=== PATIENT | female | born 1990 | race Hispanic/Latino ===

== ENCOUNTER 2017-10-14 08:55 | Inpatient (IN) | payer OTHER ==
--- OUTSIDE RECORDS SUMMARY | 2017-10-14 08:57 | XMS REPORT ---
:1990 Author Organization [employer] Care Team Providers Name Role Phone Delia Dangelo Provider Role Unavailable Allergies No Known Allergies Problems Problem Type Condition Code Onset Dates Condition Status Problem Normal first in third Z34.03 Active trimester Problem Other abnormal findings on O28.8 Active screening of mother Problem Hemochromatosis carrier Z14.8 Active Assessment Hemochromatosis carrier Z14.8 Active Assessment Normal first in third Z34.03 Active trimester Medications No Known Medications Results No Known Results Summary Purpose eClinicalWorks Submission
--- OUTSIDE RECORDS SUMMARY | 2017-10-14 08:57 | XMS REPORT ---
:1990 Author Organization [employer] Care Team Providers Name Role Phone Delia Dangelo Provider Role Unavailable Allergies No Known Allergies Problems Problem Type Condition Code Onset Dates Condition Status Problem care, first in Z34.02 Active second trimester Assessment care, first in Z34.02 Active second trimester Problem Other abnormal findings on O28.8 Active screening of mother Assessment Other abnormal findings on O28.8 Active screening of mother Medications No Known Medications Results No Known Results Summary Purpose eClinicalWorks Submission
--- OUTSIDE RECORDS SUMMARY | 2017-10-14 08:57 | XMS REPORT ---
:1990 Author Organization [employer] Care Team Providers Name Role Phone Delia Dangelo Provider Role Unavailable Allergies No Known Allergies Problems Problem Type Condition Code Onset Dates Condition Status Problem Normal first in third Z34.03 Active trimester Problem Other abnormal findings on O28.8 Active screening of mother Problem Hemochromatosis carrier Z14.8 Active Assessment Other abnormal findings on O28.8 Active screening of mother Assessment Hemochromatosis carrier Z14.8 Active Assessment Normal first in third Z34.03 Active trimester Medications No Known Medications Results No Known Results Immunizations Vaccine Administration Date TDAP > 7 Years-Adacel Oct 01, 2017 Summary Purpose eClinicalWorks Submission
--- OUTSIDE RECORDS SUMMARY | 2017-10-14 08:57 | XMS REPORT ---
[...] on O28.8 Active screening of mother Assessment Normal first in third Z34.03 Active trimester Medications No Known Medications Results No Known Results Summary Purpose eClinicalWorks Submission
[2017-10-14] MEDS ORDERED: Ringers Lactate 1,000 ML IV PRN (10:42)
[2017-10-14] MEDS ORDERED: Ringers Lactate 1,000 ML IV SCH (11:00)
[2017-10-14] MEDS ORDERED: OXYTOCIN/LR 20 UNIT/1,000 ML BAG IV SCH ×2 (11:00→14:42)
[2017-10-14 11:11] LABS: RPR Titer ND
[2017-10-14 11:21] VITALS: BMI 37.8
[2017-10-14 11:28] LABS: Urine Appearance CLEAR; Urine Bilirubin NEGATIVE (NEG); Urine Blood TRACE (NEG); Urine Color YELLOW; Urine Glucose NEGATIVE (NEG); Urine Protein NEGATIVE (NEG); Urine Specific Gravity 1.015 (1.005-1.030); Urine Urobilinogen 0.2 mg/dL (0.2-1.0); Urine pH 6.5 (5.0-7.0)
[2017-10-14 11:29] LABS: Absolute Monocytes 0.4 K/uL (0.1-1.3); Absolute Neutrophil 9.3 K/uL (1.8-8.0); Basophils % 0.4 % (0-1.3); Eosinophils % 0.5 % (0-4.4); Hematocrit 40.5 % (36.0-45.0); Lymphocytes % 17.1 % (15.3-44.8); MCV 88.8 fL (80-100); MPV 11.9 fL (7.6-11.3); Monocytes % 3.5 % (3.3-12.3); RBC Red Blood Cell Count 4.56 M/uL (3.86-4.86)
[2017-10-14 11:31] LABS: Urine Microscopic Reflex ORDER UMIC
[2017-10-14 11:38] LABS: BUN Blood Urea Nitrogen 11 mg/dL (7-18); Bicarbonate 22 mmol/L (21-32); Glucose Level 78 mg/dL (74-106); Potassium 4.7 mmol/L (3.5-5.1); Sodium Level 141 mmol/L (136-145)
[2017-10-14 11:43] LABS: Urine Bacteria <20 /HPF (<20); Urine RBC <5 /HPF (NONE SEEN)
[2017-10-14 11:44] LABS: Urine Culture Reflex Order NOT NEEDED
--- NOTE | 2017-10-14 12:12 | P.HP ---
Certification for Inpatient Patient admitted to: Inpatient With expected LOS: >2 Midnights Patient will require the following post-hospital care: None Practitioner: I am a practitioner with admitting privileges, knowledge of patient current condition, hospital course, and medical plan of care. Services: Services provided to patient in accordance with Admission requirements found in Title 42 Section 412.3 of the Code of Federal Regulations Patient History Date of Service: 10/14/17 Reason for admission: Spontaneous labor History of Present Illness: 26 y.o. G1 at 38w3d admitted for spontaneous onset of labor. She has been baldev since yesterday and pain became unbearable, so she presented to L&D and was noted to be 4 cm dilated, bulging bag. She denies LOF or VF. Fetus is active. complicated byh/o THC use, indeterminate NIPT x2 and referral to [facility] (subsequent negative result), diagnosis of hemochromatosis carrier, and obesity. AGATHA: 10/25/2017. GBS negative Allergies No Known Allergies Allergy (Verified 08/17/17 03:47) Home Medications: Vits96/Iron Fum/Folic [ Tablet] 1 each PO DAILY 10/14/17 - Past Medical/Surgical History Diabetic: No -: Hemochromatosis carrier -: H/o THC use - Social History Smoking Status: Former smoker Alcohol use: No CD- Drugs: No Caffeine use: No Place of Residence: Home Review of Systems 10-point ROS is otherwise unremarkable Physical Examination - Vital Signs Temperature: 97.1 F Blood Pressure: 125/66 Pulse: 77 Respirations: 20 - Physical Exam General: Alert, In no apparent distress, Oriented x3 HEENT: Atraumatic, Normocephalic Respiratory: Other (Normal effort) Cardiovascular: Normal pulses Musculoskeletal: No swelling, No tenderness Integumentary: No rashes, No breakdown Neurological: Normal speech, Normal strength at 5/5 x4 extr - Studies Laboratory Data (last 24 hrs) 10/14/17 10:28: Sodium 141, Potassium 4.7, BUN 11, Creatinine 0.70, Glucose 78 10/14/17 10:28: WBC 11.8 H, Hgb 13.7, Hct 40.5, Plt Count 222 Female Exam - Female Pelvic Cervix: Dilation (5), Effacement (80), station (-1) Uterus: Non-tender, Soft, Gravid - Obstetrics heart rate tracing: Category 1 Contractions: Frequency (q 3-4 min) Amniotic membrane: Intact (Bulging) Assessment and Plan - Problems (Diagnosis) (1) Spontaneous onset of labor after 37 but before 39 completed weeks gestation with delivery by planned section Current Visit: Yes Status: Acute Plan: Admit for management of labor. AROM done with clear fluid noted. Epidural prn patient request. Continuous monitoring. (2) Hemochromatosis carrier Current Visit: Yes Status: Acute Plan: S/p evaluation by MFM. FOB is not a carrier. (3) Class 2 obesity with body mass index (BMI) of 37.0 to 37.9 in adult Current Visit: Yes Status: Chronic Qualifiers: Obesity type: due to excess calories - Advance Directives Does patient have a Living Will: No Does patient have a Durable POA for Healthcare: No
[2017-10-14] MEDS ORDERED: BUTORPHANOL 1 MG/ML INJ IV PRN (12:13)
[2017-10-14] MEDS ORDERED: ROPIVACAINE HCL 100 ML IV PRN (12:41)
[2017-10-14] MEDS ORDERED: ROPIVACAINE HCL 0.2% 20ML AMP IV ONE (12:42)
[2017-10-14] MEDS ORDERED: FENTANYL CITR 100 MCG/2 ML IV ONE (12:43)
--- NOTE | 2017-10-14 14:44 | P.PN ---
Date of Service: 10/14/17 Tracing reviewed. Decel noted that responded to repositioning and oxygen placement per RN. Pt now has an epidural. Discussed cervical exam of without further significant change noted. Orders placed to start Pitocin for augmentation. RN Jacklyn agreed.
[2017-10-14] MEDS ORDERED: NA CIT/CITRIC AC 30 ML ORAL UDC PO ONE (16:00)
[2017-10-14] MEDS ORDERED: METOCLOPRAMIDE 10 MG/2mL INJ IV SCH (16:00)
--- NOTE | 2017-10-14 16:53 | P.PN ---
Date of Service: 10/14/17 Pt seen and examined. She is now comfortable with epidural. Exam: 9-10, +1 station tones: cat II, mild variables [place]: q 2 min Continue current care. Anticipate
[2017-10-14 18:02] LABS: Barbiturates NEGATIVE (NEGATIVE); Benzodiazepines NEGATIVE (NEGATIVE); Cocaine NEGATIVE (NEGATIVE); METHAMPHETAM NEGATIVE (NEGATIVE); Methadone NEGATIVE (NEGATIVE); Opiates NEGATIVE (NEGATIVE); Phencyclidine NEGATIVE (NEGATIVE); THC Cannibis NEGATIVE (NEGATIVE)
[2017-10-14] MEDS ORDERED: DOCUSATE NA/SENNA CONC 1 TAB PO PRN (19:40)
[2017-10-14] MEDS ORDERED: BISACODYL 10 MG RECTAL SUPP RECT PRN (19:40)
[2017-10-14] MEDS ORDERED: ONDANSETRON 4 MG (ODT) TAB PO PRN (19:40)
[2017-10-14] MEDS ORDERED: IBUPROFEN 200 MG TAB PO PRN (19:40)
[2017-10-14] MEDS ORDERED: METOCLOPRAMIDE 5 MG TAB PO PRN (19:40)
[2017-10-14] MEDS ORDERED: DIPHENHYDRAMINE 25 MG TAB/CAP PO PRN (19:40)
--- NOTE | 2017-10-14 19:48 | P.OP ---
Preoperative diagnosis: Term IUP, Spontaneous labor Postoperative diagnosis: Same Primary procedure: Estimated blood loss: 300 cc Specimen: Placenta Findings: See operative report Operative Technique: FINDINGS: Male fetus in NOLA position, APGARS of 8/8 at 1 and 5 minutes respectively, weight of 7 lb 11 oz, clear amniotic fluid. Normal appearing placenta. First degree midline laceration. Stage I: 5 h 12 min; Stage II: 1 h 57 min. HISTORY OF PRESENT ILLNESS: The patient is a 26-year-old female who is a G1P at 38w3d who was admitted for spontaneous onset of labor. She had adequate care and was complicated by h/o THC use, hemochromatosis carrier, and obesity. She had care with [facility]. Labs were normal and she had otherwise routine care. On admission, she was noted to be 4 cm dilated with a bulging bad. She denied complaints and noted positive movement. PROCEDURE DETAILS: The patient was admitted to Labor and Delivery for expectant management. She had AROM done with clear fluid noted. She requested an epidural for pain control, which was placed with good result. Labor progressed normally. She had a spontaneous vaginal delivery of a live born male with clear fluid from an NOLA position with compound hand presentatin over an intact perineum at 19:13. After controlled delivery of the head and noting of compound hand presentation, a dystocia was encountered. Suctioning was done at the perineum. Continued pushing efforts did not spontaneously resolve dystocia, thus maneuvers were done including [place], suprapubic pressure, and finally delivery of posterior arm which was done without incident. Next, the anterior shoulder delivered and body followed without difficulty. It lasted approximately 90 seconds. Additional bulb suctioning was done. The infant was placed on the patient's abdomen for skin to skin contact. The cord was clamped and cut. Findings as stated above. There was initial depression which resolved with stimulation and was given blow-by oxygen. started to cry, was vigorous, and moving all extremities. Spontaneous delivery of an intact placenta with a three-vessel cord was noted at 19:17. It was sent to pathology. On examination, there was 1st degree midline laceration. It was repaired 2-0 vicryl in a continuous, running unlocked fashion. On vaginal exam, there were no noted cervical or vaginal sidewall lacerations. Patient tolerated procedure well and there were no complications. Estimated blood loss was ~300 cc. Mother and infant are in recovery doing well at this time. Complications: None Fluids & blood products: mIVF Transferred to: Recovery Room Condition: Good
[2017-10-14] MEDS ORDERED: NA CHLORIDE 0.9% 1,000 ML IV SCH (20:00)
[2017-10-15 00:21] LABS: RPR (Rapid Plasma Reagin) NON-REACT (NON-REACT)
[2017-10-15] MEDS: IBUPROFEN 400 MG TAB PO SCH ×2 (00:40→19:10)
[2017-10-15 06:57] LABS: Absolute Lymphocytes (CBC) 2.2 K/uL (0.7-4.9); Absolute Monocytes 0.8 K/uL (0.1-1.3); Absolute Neutrophil 12.4 K/uL (1.8-8.0); Basophils % 0.3 % (0-1.3); Eosinophils % 0.4 % (0-4.4); Hematocrit 35.5 % (36.0-45.0); Lymphocytes % 14.1 % (15.3-44.8); MCH 30.5 pg (27.0-35.0); MPV 11.5 fL (7.6-11.3); Monocytes % 5.1 % (3.3-12.3); RBC Red Blood Cell Count 3.99 M/uL (3.86-4.86)
--- NOTE | 2017-10-15 09:13 | P.PN ---
Subjective Date of Service: 10/15/17 Chief Complaint: Spontaneous labor Subjective: No new changes, Tolerating diet, Ambulating (Pain is well- controlled and paring of issues have a normal spontaneous voids. No concerns voiced), Doing well Review of Systems 10-point ROS is otherwise unremarkable Physical Examination - Vital Signs Temperature: 96.5 F Blood Pressure: 102/54 Pulse: 82 Respirations: 18 - Physical Exam General: Alert, In no apparent distress, Oriented x3 HEENT: Atraumatic, Normocephalic Respiratory: Other (Normal respiratory effort) Cardiovascular: Normal pulses Gastrointestinal: Soft and benign, No tenderness, Other (Obesity, uterus firm at 1 cm below umbilicus) Musculoskeletal: No swelling, No tenderness Integumentary: No rashes, No breakdown Neurological: Normal speech, Normal strength at 5/5 x4 extr - Studies Laboratory Data (last 24 hrs) 10/15/17 06:07: WBC 15.5 H D, Hgb 12.2, Hct 35.5 L, Plt Count 189 10/14/17 10:28: Sodium 141, Potassium 4.7, BUN 11, Creatinine 0.70, Glucose 78 10/14/17 10:28: WBC 11.8 H, Hgb 13.7, Hct 40.5, Plt Count 222 Assessment And Plan - Current Problems (Diagnosis) (1) Spontaneous onset of labor after 37 but before 39 completed weeks gestation with delivery by planned section Onset Date: 10/15/17 Current Visit: Yes Status: Resolved (2) Hemochromatosis carrier Onset Date: 10/15/17 Current Visit: Yes Status: Chronic (3) Class 2 obesity with body mass index (BMI) of 37.0 to 37.9 in adult Onset Date: 10/15/17 Current Visit: Yes Status: Chronic Qualifiers: Obesity type: due to excess calories (4) Vaginal delivery Onset Date: 10/15/17 Current Visit: Yes Status: Acute Plan: Patient is doing well at day 1. She is tolerating intake, having normal voids, pain is overall well controlled. Lochia described as normal. Ambulation encouraged. Repeat labs in AM, likely demargination. Anticipate Dc home tomorrow.
[2017-10-15] MEDS: ACETAMINOPHEN 500 MG TAB PO SCH (11:19)
[2017-10-15] MEDS ORDERED: FAMOTIDINE 20 MG/2 ML VIAL IV ONE (16:00)
[2017-10-16] MEDS: ACETAMINOPHEN 500 MG TAB PO SCH (01:08)
[2017-10-16 02:21] VITALS: TEMP 97
[2017-10-16 02:33] LABS: HBsAG Nonreactive (Nonreactive)
[2017-10-16 05:42] LABS: Absolute Lymphocytes (CBC) 3.1 K/uL (0.7-4.9); Absolute Monocytes 0.5 K/uL (0.1-1.3); Absolute Neutrophil 7.8 K/uL (1.8-8.0); Basophils % 0.6 % (0-1.3); Eosinophils % 1.9 % (0-4.4); Hematocrit 36.3 % (36.0-45.0); Lymphocytes % 26.4 % (15.3-44.8); MCH 30.6 pg (27.0-35.0); MCV 90.7 fL (80-100); MPV 11.4 fL (7.6-11.3); Monocytes % 4.3 % (3.3-12.3)
--- NOTE | 2017-10-16 07:26 | P.DS ---
Admission Date: 10/14/17 Discharge Date: 10/23/17 Disposition: ROUTINE DISCHARGE Comment: Rounding with d/c summary Discharge Condition: GOOD Reason for Admission: Spontaneous labor - Problems (1) Hemochromatosis carrier Onset Date: 10/15/17 Status: Chronic (2) Class 2 obesity with body mass index (BMI) of 37.0 to 37.9 in adult Onset Date: 10/15/17 Status: Chronic Qualifiers: Obesity type: due to excess calories (3) Vaginal delivery Onset Date: 10/15/17 Status: Acute Brief History of Present Illness: 26 y.o. G1 at 38w3d admitted for spontaneous onset of labor. She has been baldev since yesterday and pain became unbearable, so she presented to L&D and was noted to be 4 cm dilated, bulging bag. She denies LOF or VF. Fetus is active. complicated byh/o THC use, indeterminate NIPT x2 and referral to [facility] (subsequent negative result), diagnosis of hemochromatosis carrier, and obesity. AGATHA: 10/25/2017. GBS negative Hospital Course: Patient was admitted for spontaneous onset of labor. There were no issues during labor process and she delivered vaginally. course has been uncomplicated. She is stable for discharge home on day 1. ERROR noted on H&P and progress notes, was never planned. Vital Signs/Physical Exam: Temp Pulse Resp BP Pulse Ox 97.0 F 68 16 108/57 L 10/16/17 04:00 10/16/17 04:00 10/16/17 04:00 10/16/17 04:00 General: Alert, In no apparent distress, Oriented x3 Respiratory: Other (Normal effort) Cardiovascular: Normal pulses Gastrointestinal: Soft and benign, Other (Uterus firm and at umbilicus) Musculoskeletal: No swelling, No tenderness Integumentary: No rashes, No breakdown Neurological: Normal speech, Normal strength at 5/5 x4 extr Laboratory Data at Discharge: WBC 11.7 K/uL (4.3-10.9) H D 10/16/17 04:55 Hgb 12.2 g/dL (12.0-15.0) 10/16/17 04:55 Hct 36.3 % (36.0-45.0) 10/16/17 04:55 Plt Count 195 K/uL (152-406) 10/16/17 04:55 Sodium 141 mmol/L (136-145) 10/14/17 10:28 Potassium 4.7 mmol/L (3.5-5.1) 10/14/17 10:28 BUN 11 mg/dL (7-18) 10/14/17 10:28 Creatinine 0.70 mg/dL (0.55-1.3) 10/14/17 10:28 Glucose 78 mg/dL (74-106) 10/14/17 10:28 Home Medications: Vits96/Iron Fum/Folic [ Tablet] 1 each PO DAILY 10/14/17 Ibuprofen 800 mg PO Q8H PRN #30 tablet 10/16/17 New Medications: Ibuprofen 800 mg PO Q8H PRN #30 tablet PRN Reason: Abdominal Cramps Patient Discharge Instructions: Complete pelvic rest for 6 weeks. Notify doctor of heavy bleeding, fever/chills, or uncontrolled pain. See doctor in 6 weeks for exam. Diet: Regular Activity: Ad corina Followup: Delia Dangelo MD [ACTIVE - CAN ADMIT] - (Follow up in 6 weeks. Call and make appointment.)
[2017-10-16] MEDS: IBUPROFEN 400 MG TAB PO SCH (07:43)
[2017-10-16 08:04] VITALS: BP 119/62
== END 2017-10-16 09:30 | disposition home or self-care (01) | DRG 775 ==
LOC: L&D 08:55 → 2ND-WC 10:10
PROVIDERS: ADMIT Obstetrics & Gynecology; ATTEND Obstetrics & Gynecology
PROC: 10E0XZZ Delivery of Products of Conception, External Approach (ICD-10-PCS; principal; 2017-10-14)
PROC: 0HQ9XZZ Repair Perineum Skin, External Approach (ICD-10-PCS; 2017-10-14)
PROC: 10907ZC Drainage of Amniotic Fluid, Therapeutic from Products of Conception, Via Natural or Artificial Opening (ICD-10-PCS; 2017-10-14)
DX: O32.6XX0 Maternal care for compound presentation, not applicable or unspecified (principal); O66.0 Obstructed labor due to shoulder dystocia; O70.0 First degree perineal laceration during delivery; O76 Abnormality in fetal heart rate and rhythm complicating labor and delivery; O99.214 Obesity complicating childbirth; Z3A.38 38 weeks gestation of pregnancy; Z37.0 Single live birth; Z14.8 Genetic carrier of other disease; Z68.37 Body mass index [BMI] 37.0-37.9, adult
CPT/HCPCS: 36415; 80048; 80307; 81003; 81015; 85025; 86592; 86850; 86900; 86901; 87340; 88307; J0595; J2590; J2795; J3010; J7030

== ENCOUNTER 2017-10-26 08:05 | Emergency (ER) | payer OTHER ==
[2017-10-26] MEDS ORDERED: IBUPROFEN 400 MG TAB ONE (08:34)
[2017-10-26] MEDS ORDERED: IBUPROFEN 200 MG TAB PO ONE (08:35)
[2017-10-26] MEDS ORDERED: ACETAMINOPHEN 500 MG TAB ONE (09:31)
[2017-10-26 09:45] LABS: Urine Bacteria 20-50 /HPF (<20); Urine RBC <5 /HPF (NONE SEEN)
[2017-10-26 09:46] LABS: Urine Culture Reflex Order NOT NEEDED
--- NOTE | 2017-10-26 10:24 | ER ---
Nurse's Notes [facility] Name: Carlie Vieira Age: 27 yrs Sex: Female : 1990 Arrival Date: 10/26/2017 Time: 08:06 Bed 20 Private MD: None, None Diagnosis: Fever, unspecified Presentation: 10/26 08:20 Presenting complaint: Patient states: fever and chills since yesterday afternoon, also iw has mild sore throat, pt is post X 2 weeks, vaginal delivery with no complications, denies n/v/d, no urinary symptoms. Transition of care: patient was not received from another setting of care. Onset of symptoms was October 25, 2017. Risk Assessment: Do you want to hurt yourself or someone else? Patient reports no desire to harm self or others. Initial Sepsis Screen: Does the patient meet any 2 criteria? No. Patient's initial sepsis screen is negative. Does the patient have a suspected source of infection? No. Patient's initial sepsis screen is negative. Care prior to arrival: None. 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 - Social history:: Smoking status: Patient/guardian denies using tobacco. - Ebola Screening: : Patient negative for fever greater than or equal to 101.5 degrees Fahrenheit, and additional compatible Ebola Virus Disease symptoms Patient denies exposure to infectious person Patient denies travel to an Ebola-affected area in the 21 days before illness onset No symptoms or risks identified at this time. Screenin:27 Abuse screen: Denies threats or abuse. Nutritional screening: No deficits noted. em Tuberculosis screening: No symptoms or risk factors identified. Fall Risk None identified. Assessment: 08:35 General: Appears in no apparent distress. comfortable, Behavior is calm, cooperative, em Reports chills for 1-2 days, fever for. Pain: Complains of pain in throat Pain currently is 4 out of 10 on a pain scale. Neuro: Level of Consciousness is awake, alert, obeys commands, Oriented to person, place, time, situation. Cardiovascular: Capillary refill < 3 seconds Patient's skin is warm and dry. Respiratory: Airway is patent Respiratory effort is even, unlabored, Respiratory pattern is regular, symmetrical. GI: Abdomen is round non-distended, Abd is soft and non tender X 4 quads. Patient currently denies nausea, vomiting. : No signs and/or symptoms were reported regarding the genitourinary system. EENT: Throat is clear is pink. Derm: Skin is intact, Skin is pink, warm \T\ dry. Musculoskeletal: Range of motion: intact in all extremities. 10:12 Reassessment: Patient appears in no apparent distress at this time. Patient and/or em family updated on plan of care and expected duration. Pain level reassessed. Patient is alert, oriented x 3, equal unlabored respirations, skin warm/dry/pink. pt reports mild headache, provider notified. 11:03 Reassessment: Patient appears in no apparent distress at this time. Patient and/or em family updated on plan of care and expected duration. Pain level reassessed. Patient is alert, oriented x 3, equal unlabored respirations, skin warm/dry/pink. Vital Signs: 08:22 BP 105 / 59; Pulse 120; Resp 16 S; Temp 101.0(TE); Pulse Ox 100% on R/A; Weight 91.17 iw kg; Height 5 ft. 4 in. (162.56 cm); Pain 4/10; 09:17 BP 93 / 53; Pulse 124; Resp 18; Pulse Ox 96% on R/A; dh3 09:24 Temp 102.3(O); em 10:13 BP 97 / 55; Pulse 106; Resp 19; Temp 99.9(O); Pulse Ox 99% on R/A; Pain 4/10; em 11:01 BP 97 / 60; Pulse 97; Resp 18; Temp 99.7(O); Pulse Ox 98% on R/A; Pain 4/10; em 08:22 Body Mass Index 34.50 (91.17 kg, 162.56 cm) ED Course: 08:06 Patient arrived in ED. sb2 08:06 None, None is Private Physician. sb2 08:06 Dimple Valle F[facility]-C [facility]. kb 08:06 Thom Canales MD is Attending Physician. kb 08:22 Triage completed. iw 08:25 Flu and/or RSV swab sent to lab. Strep swab sent to lab. [facility] 08:26 Raul Worthington LVN is Primary Nurse. em 08:27 Arm band placed on. em 08:27 Patient has correct armband on for positive identification. Placed in gown. Bed in low em position. Call light in reach. Adult w/ patient. 09:16 Urine collected: clean catch specimen, cloudy. 3 11:01 No provider procedures requiring assistance completed. Patient did not have IV access em during this emergency room visit. Administered Medications: 08:35 Drug: Ibuprofen 600 mg Route: PO; em 09:28 Follow up: Response: No adverse reaction em 09:29 Drug: Tylenol 1000 mg Route: PO; em 11:04 Follow up: Response: No adverse reaction; Temperature is decreased em Outcome: 10:23 Discharge ordered by MD. kb 11:01 Discharged to home ambulatory. em 11:01 Condition: good 11:01 Discharge instructions given to patient, family, Instructed on discharge instructions, follow up and referral plans. Demonstrated understanding of instructions, follow-up care. 11:03 Patient left the ED. em Signatures: Dimple Valle FNP-C ELECTRICAL SUPERVISOR-Raul Rivero LVN LVN em Zuleyma Fay, RN RN Shameka Silva 3 Nohemi Murray sb2 Corrections: (The following items were deleted from the chart) 11:03 10:12 Reassessment: Patient appears in no apparent distress at this time. Patient em and/or family updated on plan of care and expected duration. Pain level reassessed. Patient is alert/active/playful, equal unlabored respirations, skin warm/dry/pink. pt reports mild headache, provider notified em
--- NOTE | 2017-10-26 10:24 | EDPHYS ---
Physician Documentation [facility] Name: Carlie Vieira Age: 27 yrs Sex: Female : 1990 Arrival Date: 10/26/2017 Time: 08:06 Bed 20 Private MD: None, None ED Physician Thom Canales HPI: 10/26 10:12 This 27 yrs old Female presents to ER via Ambulatory with complaints of Fever. kb 10:12 The patient reports fever, that was measured at 103 degrees Fahrenheit, with an kb emergency department temperature of 102.3 degrees Fahrenheit. Onset: The symptoms/episode began/occurred last night. Modifying factors: there are no obvious modifying factors. Associated signs and symptoms:. Severity of symptoms: At their worst the symptoms were moderate in the emergency department the symptoms are unchanged. The patient has not experienced similar symptoms in the past. The patient has not recently seen a physician. Pt reports fever and chills that started yesterday. Denies any other symptoms. Reports vaginal delivery a week ago with no complications.. 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 - Social history:: Smoking status: Patient/guardian denies using tobacco. - Ebola Screening: : Patient negative for fever greater than or equal to 101.5 degrees Fahrenheit, and additional compatible Ebola Virus Disease symptoms Patient denies exposure to infectious person Patient denies travel to an Ebola-affected area in the 21 days before illness onset No symptoms or risks identified at this time. ROS: 10:11 ENT: Negative for injury, pain, and discharge, Neck: Negative for injury, pain, and kb swelling, Cardiovascular: Negative for chest pain, palpitations, and edema, Respiratory: Negative for shortness of breath, cough, wheezing, and pleuritic chest pain, Abdomen/GI: Negative for abdominal pain, nausea, vomiting, diarrhea, and constipation, Back: Negative for injury and pain, : Negative for injury, bleeding, discharge, and swelling, MS/Extremity: Negative for injury and deformity, Skin: Negative for injury, rash, and discoloration, Neuro: Negative for headache, weakness, numbness, tingling, and seizure. 10:11 Constitutional: Positive for chills, fever, Negative for body aches, fatigue, malaise, poor PO intake, weight loss. Exam: 10:11 Constitutional: This is a well developed, well nourished patient who is awake, alert, kb and in no acute distress. Head/Face: Normocephalic, atraumatic. ENT: Nares patent. No nasal discharge, no septal abnormalities noted. Tympanic membranes are normal and external auditory canals are clear. Oropharynx with no redness, swelling, or masses, exudates, or evidence of obstruction, uvula midline. Mucous membranes moist. Neck: Trachea midline, no thyromegaly or masses palpated, and no cervical lymphadenopathy. Supple, full range of motion without nuchal rigidity, or vertebral point tenderness. No Meningismus. Chest/axilla: Normal chest wall appearance and motion. Nontender with no deformity. No lesions are appreciated. Cardiovascular: Regular rate and rhythm with a normal S1 and S2. No gallops, murmurs, or rubs. Normal PMI, no JVD. No pulse deficits. Respiratory: Lungs have equal breath sounds bilaterally, clear to auscultation and percussion. No rales, rhonchi or wheezes noted. No increased work of breathing, no retractions or nasal flaring. Abdomen/GI: Soft, non-tender, with normal bowel sounds. No distension or tympany. No guarding or rebound. No evidence of tenderness throughout. Skin: Warm, dry with normal turgor. Normal color with no rashes, no lesions, and no evidence of cellulitis. MS/ Extremity: Pulses equal, no cyanosis. Neurovascular intact. Full, normal range of motion. Neuro: Awake and alert, GCS 15, oriented to person, place, time, and situation. Cranial nerves II-XII grossly intact. Motor strength 5/5 in all extremities. Sensory grossly intact. Cerebellar exam normal. Normal gait. Vital Signs: 08:22 BP 105 / 59; Pulse 120; Resp 16 S; Temp 101.0(TE); Pulse Ox 100% on R/A; Weight 91.17 iw kg; Height 5 ft. 4 in. (162.56 cm); Pain 4/10; 09:17 BP 93 / 53; Pulse 124; Resp 18; Pulse Ox 96% on R/A; dh3 09:24 Temp 102.3(O); em 10:13 BP 97 / 55; Pulse 106; Resp 19; Temp 99.9(O); Pulse Ox 99% on R/A; Pain 4/10; em 11:01 BP 97 / 60; Pulse 97; Resp 18; Temp 99.7(O); Pulse Ox 98% on R/A; Pain 4/10; em 08:22 Body Mass Index 34.50 (91.17 kg, 162.56 cm) iw MDM: 08:14 Patient medically screened. kb 10:12 Data reviewed: vital signs, nurses notes. Data interpreted: Pulse oximetry: on room air kb is 96 %. Interpretation: normal. 10:23 Counseling: I had a detailed discussion with the patient and/or guardian regarding: the kb historical points, exam findings, and any diagnostic results supporting the discharge/admit diagnosis, lab results, the need for outpatient follow up, a family practitioner, an OB/Gyne specialist, to return to the emergency department if symptoms worsen or persist or if there are any questions or concerns that arise at home. 10/26 08:18 Order name: Flu; Complete Time: 08:55 kb 10/26 08:18 Order name: Strep kb 10/26 08:53 Order name: Throat Culture [facility] 10/26 09:16 Order name: Urine Microscopic Only kb 10/26 09:16 Order name: Urine Microscopic Only; Complete Time: 10:02 [facility] 10/26 09:20 Order name: Urine Dipstick--Ancillary (enter results) eb 10/26 08:55 Order name: Urine Dipstick-Ancillary (obtain specimen); Complete Time: 09:16 kb 10/26 09:20 Order name: Urine --Ancillary (enter results) eb Administered Medications: 08:35 Drug: Ibuprofen 600 mg Route: PO; em 09:28 Follow up: Response: No adverse reaction em 09:29 Drug: Tylenol 1000 mg Route: PO; em 11:04 Follow up: Response: No adverse reaction; Temperature is decreased em Disposition: 11:31 Co-signature as Attending Physician, Thom Canales MD. rn Disposition: 10/26/17 10:23 Discharged to Home. Impression: Fever, unspecified. - Condition is Stable. - Discharge Instructions: Fever, Adult, [id number]. - Medication Reconciliation Form, Thank You Letter, Antibiotic Education, Prescription Opioid Use form. - Follow up: Emergency Department; When: As needed; Reason: Worsening of condition. Follow up: Private Physician; When: 2 - 3 days; Reason: Recheck today's complaints, Continuance of care, Re-evaluation by your physician. Addendum: 10/27/2017 12:52 Addendum: Spoke to pt regarding symptoms over the phone. States the fever has gone k b down, but now she has a reddened area to left breast that is warm and tender. Dicloxacillin 500mg PO QID for 7 days called in to [facility] in [place]. Signatures: Dispatcher [employer] EDDimple Pedraza, ARABELLA-C KINDERGARTEN PARAPROFESSIONAL-Raul Rivero, SNOWBOARD INSTRUCTOR SNOWBOARD INSTRUCTOR Zuleyma Tijerina RN RN iw Thom Canales MD MD early morning babysitter: (The following items were deleted from the chart) 10/26 10:13 10:12 Pt reports fever and chills that started yesterday. Denies any other symptoms. . kb kb 11:03 10:23 10/26/2017 10:23 Discharged to Home. Impression: Fever, unspecified. Condition is em Stable. Forms are Medication Reconciliation Form, Thank You Letter, Antibiotic Education, Prescription Opioid Use. Follow up: Emergency Department; When: As needed; Reason: Worsening of condition. Follow up: Private Physician; When: 2 - 3 days; Reason: Recheck today's complaints, Continuance of care, Re-evaluation by your physician. kb
[2017-10-26 11:29] VITALS: BP 97/60; TEMP 99.7; O2SAT 98
[2017-10-26 12:56] LABS: Urine Blood 2+ (NEG); Urine Glucose NEGATIVE (NEG); Urine Protein 1+ (NEG); Urine Specific Gravity 1.015 (1.005-1.030)
== END 2017-10-26 11:03 | disposition home or self-care (01) ==
LOC: ER 08:05
DX: O86.4 Pyrexia of unknown origin following delivery (principal)
CPT/HCPCS: 81003; 81015; 81025; 87070; 87081; 87804; 99283

== ENCOUNTER 2018-05-15 06:32 | Emergency (ER) | payer OTHER, SELFPAY ==
--- OUTSIDE RECORDS SUMMARY | 2018-05-15 06:37 | XMS REPORT ---
:1990 Author Organization eClinicalWorks Care Team Providers Name Role Phone Alexi Martin Provider Role Unavailable Allergies No Known Allergies [...]
[2018-05-15] MEDS ORDERED: ONDANSETRON 4 MG/2 ML VIAL ONE (07:09)
[2018-05-15] MEDS ORDERED: KETOROLAC 30 MG/ML INJ ONE (07:09)
[2018-05-15] MEDS ORDERED: NA CHLORIDE 0.9% 1,000 ML ONE (07:09)
[2018-05-15 07:42] LABS: Absolute Lymphocytes (CBC) 2.6 K/uL (0.7-4.9); Absolute Monocytes 0.4 K/uL (0.1-1.3); Absolute Neutrophil 6.7 K/uL (1.8-8.0); Basophils % 0.4 % (0-1.3); Eosinophils % 1.5 % (0-4.4); Hematocrit 42.1 % (36.0-45.0); MPV 10.9 fL (7.6-11.3); Monocytes % 4.4 % (3.3-12.3); RBC Red Blood Cell Count 4.77 M/uL (3.86-4.86)
[2018-05-15 08:06] LABS: Urine Specific Gravity 1.025 (1.005-1.030)
[2018-05-15 08:07] LABS: Urine Blood TRACE (NEG); Urine Glucose NEGATIVE (NEG); Urine Protein 1+ (NEG); Urine Specific Gravity 1.025 (1.005-1.030); Urine pH 5.5 (5.0-7.0)
[2018-05-15 08:17] LABS: ALT/SGPT 22 U/L (12-78); AST/SGOT 13 U/L (15-37); Albumin 3.7 g/dL (3.4-5.0); Alkaline Phosphatase 73 U/L (45-117); BUN Blood Urea Nitrogen 15 mg/dL (7-18); Bicarbonate 24 mmol/L (21-32); Bilirubin Direct 0.1 mg/dL (0-0.2); Bilirubin Total 0.4 mg/dL (0.2-1.0); Glucose Level 99 mg/dL (74-106); Lipase 145 U/L (73-393); Potassium 3.8 mmol/L (3.5-5.1); Protein, Total 6.7 g/dL (6.4-8.2); Sodium Level 140 mmol/L (136-145)
--- NOTE | 2018-05-15 08:32 | EDPHYS ---
Physician Documentation [facility] Name: Carlie Vieira Age: 27 yrs Sex: Female : 1990 Arrival Date: 05/15/2018 Time: 06:40 Bed 5 Private MD: ED Physician Otf Alvarez HPI: 05/15 06:54 This 27 yrs old Female presents to ER via Ambulatory with complaints of pm1 Abdominal Pain. 06:54 The patient presents with abdominal pain in the right upper quadrant. Onset: The pm1 symptoms/episode began/occurred 3 day(s) ago. The symptoms radiate to right back. Associated signs and symptoms: Pertinent positives: nausea, Pertinent negatives: chest pain, diarrhea, dysuria, fever, shortness of breath, vomiting. The symptoms are described as crampy. Modifying factors: The symptoms are alleviated by nothing, the symptoms are aggravated by food. Severity of pain: in the emergency department the pain is unchanged. The patient has not experienced similar symptoms in the past. The patient has not recently seen a physician. 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 - Social history:: Smoking status: Patient/guardian denies using tobacco. - Ebola Screening: : No symptoms or risks identified at this time. ROS: 06:54 Constitutional: Negative for fever, chills, and weight loss, Eyes: Negative for injury, pm1 pain, redness, and discharge, ENT: Negative for injury, pain, and discharge, Neck: Negative for injury, pain, and swelling, Cardiovascular: Negative for chest pain, palpitations, and edema, Respiratory: Negative for shortness of breath, cough, wheezing, and pleuritic chest pain. 06:54 : Negative for injury, bleeding, discharge, and swelling, MS/Extremity: Negative for injury and deformity, Skin: Negative for injury, rash, and discoloration, Neuro: Negative for headache, weakness, numbness, tingling, and seizure. 06:54 Abdomen/GI: Positive for abdominal pain, nausea, Negative for vomiting, diarrhea. 06:54 Back: Positive for flank pain, on the right, Negative for injury or acute deformity, decreased range of motion. Exam: 06:54 Constitutional: This is a well developed, well nourished patient who is awake, alert, pm1 and in no acute distress. Head/Face: Normocephalic, atraumatic. Eyes: Pupils equal round and reactive to light, extra-ocular motions intact. Lids and lashes normal. Conjunctiva and sclera are non-icteric and not injected. Cornea within normal limits. Periorbital areas with no swelling, redness, or edema. ENT: Nares patent. No nasal discharge, no septal abnormalities noted. Tympanic membranes are normal and external auditory canals are clear. Oropharynx with no redness, swelling, or masses, exudates, or evidence of obstruction, uvula midline. Mucous membranes moist. Neck: Trachea midline, no thyromegaly or masses palpated, and no cervical lymphadenopathy. Supple, full range of motion without nuchal rigidity, or vertebral point tenderness. No Meningismus. Chest/axilla: Normal chest wall appearance and motion. Nontender with no deformity. No lesions are appreciated. Cardiovascular: Regular rate and rhythm with a normal S1 and S2. No gallops, murmurs, or rubs. Normal PMI, no JVD. No pulse deficits. Respiratory: Lungs have equal breath sounds bilaterally, clear to auscultation and percussion. No rales, rhonchi or wheezes noted. No increased work of breathing, no retractions or nasal flaring. 06:54 Back: No spinal tenderness. No costovertebral tenderness. Full range of motion. Skin: Warm, dry with normal turgor. Normal color with no rashes, no lesions, and no evidence of cellulitis. MS/ Extremity: Pulses equal, no cyanosis. Neurovascular intact. Full, normal range of motion. 06:54 Abdomen/GI: Inspection: obese Bowel sounds: normal, Palpation: soft, mild abdominal tenderness, in the right upper quadrant, mass, is not appreciated, rebound tenderness, is not appreciated. 06:54 Neuro: Orientation: is normal, Motor: is normal, moves all fours, Sensation: is normal, no obvious gross deficits, Gait: is steady, at a normal pace, without difficulty. Vital Signs: 06:52 BP 105 / 67; Pulse 71; Resp 18; Temp 98.5; Pulse Ox 100% on R/A; Weight 86.18 kg; aa1 Height 5 ft. 4 in. (162.56 cm); Pain 7/10; 08:14 BP 106 / 68; Pulse 63; Resp 16; Pulse Ox 100% ; Pain 1/10; jl7 06:52 Body Mass Index 32.61 (86.18 kg, 162.56 cm) aa1 MDM: 06:48 Patient medically screened. pm1 06:56 Data reviewed: vital signs. Data interpreted: Pulse oximetry: on room air is 100 %. pm1 Interpretation: normal. 08:30 Counseling: I had a detailed discussion with the patient and/or guardian regarding: the pm1 historical points, exam findings, and any diagnostic results supporting the discharge/admit diagnosis, lab results, radiology results, the need for outpatient follow up, a general surgeon, to return to the emergency department if symptoms worsen or persist or if there are any questions or concerns that arise at home. 05/15 06:53 Order name: Basic Metabolic Panel; Complete Time: 08:21 pm05/15 06:53 Order name: CBC with Diff; Complete Time: 07:53 pm05/15 06:53 Order name: Hepatic Function; Complete Time: 08:21 pm05/15 06:53 Order name: Lipase; Complete Time: 08:21 pm05/15 07:31 Order name: Urine Dipstick--Ancillary (enter results); Complete Time: 08:14 kj1 05/15 06:53 Order name: IV Saline Lock; Complete Time: 07:33 pm05/15 06:53 Order name: Labs collected and sent; Complete Time: 07:33 pm05/15 06:53 Order name: Urine Dipstick-Ancillary (obtain specimen); Complete Time: 07:33 pm05/15 06:53 Order name: US Abdomen Limited; Complete Time: 08:43 pm05/15 07:33 Order name: Urine --Ancillary (enter results); Complete Time: 08:14 kj1 05/15 06:53 Order name: Urine Test (obtain specimen); Complete Time: 07:33 pm05/15 07:40 Order name: Labs - recollect needed; Complete Time: 07:53 kj1 Administered Medications: 07:25 Drug: NS 0.9% 1000 ml Route: IV; Rate: 1000 ml; Site: left antecubital; jl7 08:54 Follow up: IV Status: Completed infusion jl7 07:26 Drug: Zofran 4 mg Route: IVP; Site: left antecubital; jl7 08:15 Follow up: Response: No adverse reaction; Nausea is decreased jl7 07:28 Drug: TORadol 30 mg Route: IVP; Site: left antecubital; jl7 08:15 Follow up: Response: No adverse reaction; Pain is decreased jl7 Disposition: 05/15/18 08:31 Discharged to Home. Impression: Cholelithiasis. - Condition is Stable. - Discharge Instructions: Cholelithiasis. - Prescriptions for Bentyl 20 mg Oral Tablet - take 1 tablet by ORAL route every 6 hours As needed; 20 tablet. Tylenol- Codeine #3 300-30 mg Oral Tablet - take 2 tablets by ORAL route every 6 hours As needed; 20 tablet. Zofran 4 mg Oral Tablet - take 1 tablet by ORAL route every 12 hours As needed; 20 tablet. - Medication Reconciliation Form, Thank You Letter, Antibiotic Education, Prescription Opioid Use form. - Follow up: Emergency Department; When: As needed; Reason: Worsening of condition. Follow up: Private Physician; When: 2 - 3 days; Reason: Recheck today's complaints, Continuance of care, Re-evaluation by your physician. - Problem is new. - Symptoms have improved. Signatures: Dispatcher [employer] EDMS Staci Corrales RN RN aa1 Lex Barbosa NP POST TENSIONING IRONWORKER HELPER pm1 Markie Arias RN RN jl7 Talita Valle kj1 Corrections: (The following items were deleted from the chart) 08:54 08:31 05/15/2018 08:31 Discharged to Home. Impression: Cholelithiasis. Condition is jl7 Stable. Forms are Medication Reconciliation Form, Thank You Letter, Antibiotic Education, Prescription Opioid Use. Follow up: Emergency Department; When: As needed; Reason: Worsening of condition. Follow up: Private Physician; When: 2 - 3 days; Reason: Recheck today's complaints, Continuance of care, Re-evaluation by your physician. Problem is new. Symptoms have improved. pm1
--- NOTE | 2018-05-15 08:32 | ER ---
Nurse's Notes [facility] Name: Carlie Vieira Age: 27 yrs Sex: Female : 1990 Arrival Date: 05/15/2018 Time: 06:40 Bed 5 Private MD: Diagnosis: Cholelithiasis Presentation: 05/15 06:50 Presenting complaint: Patient states: RUQ pain x 2-3 days. Transition of care: patient aa1 was not received from another setting of care. Onset of symptoms was May 12, 2018. Risk Assessment: Do you want to hurt yourself or someone else? Patient reports no desire to harm self or others. Initial Sepsis Screen: Does the patient meet any 2 criteria? No. Patient's initial sepsis screen is negative. Does the patient have a suspected source of infection? No. Patient's initial sepsis screen is negative. Care prior to arrival: None. 06:50 Method Of Arrival: Ambulatory aa1 06:50 Acuity: JEREMY 3 aa1 Triage Assessment: 06:52 General: Appears in no apparent distress. comfortable, Behavior is calm, cooperative, aa1 appropriate for age. 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 - Social history:: Smoking status: Patient/guardian denies using tobacco. - Ebola Screening: : No symptoms or risks identified at this time. Screenin:15 Abuse screen: Denies threats or abuse. Denies injuries from another. Nutritional jl7 screening: No deficits noted. Tuberculosis screening: No symptoms or risk factors identified. Fall Risk IV access (20 points). Total Medina Fall Scale indicates No Risk (0-24 pts). Assessment: 07:15 General: Appears in no apparent distress. uncomfortable, Behavior is calm, cooperative, jl7 appropriate for age. Pain: Complains of pain in right upper quadrant Pain radiates to right mid back Pain currently is 7 out of 10 on a pain scale. Quality of pain is described as sharp, Pain began 2-3 days ago. Is intermittent. Neuro: Level of Consciousness is awake, alert, obeys commands, Oriented to person, place, time, situation. Cardiovascular: Patient's skin is warm and dry. Respiratory: Airway is patent Respiratory effort is even, unlabored, Respiratory pattern is regular, symmetrical. GI: Last BM was May 14, 2018. Bowel sounds present X 4 quads. Abd is soft and non tender in left upper quadrant, right lower quadrant and left lower quadrant Abdomen is tender to palpation in right upper quadrant Reports nausea, Patient currently denies constipation, diarrhea, vomiting. : No signs and/or symptoms were reported regarding the genitourinary system. Denies burning with urination, inability to void, pain urinary frequency. EENT: No signs and/or symptoms were reported regarding the EENT system. Derm: Skin is pink, warm \T\ dry. Musculoskeletal: No signs and/or symptoms reported regarding the musculoskeletal system. 08:15 Reassessment: Patient appears in no apparent distress at this time. Patient and/or jl7 family updated on plan of care and expected duration. Pain level reassessed. Patient is alert, oriented x 3, equal unlabored respirations, skin warm/dry/pink. Patient denies pain at this time. Patient states feeling better. Patient states symptoms have improved. Vital Signs: 06:52 BP 105 / 67; Pulse 71; Resp 18; Temp 98.5; Pulse Ox 100% on R/A; Weight 86.18 kg; aa1 Height 5 ft. 4 in. (162.56 cm); Pain 7/10; 08:14 BP 106 / 68; Pulse 63; Resp 16; Pulse Ox 100% ; Pain 1/10; jl7 06:52 Body Mass Index 32.61 (86.18 kg, 162.56 cm) aa1 ED Course: 06:40 Patient arrived in ED. es 06:48 Lex Barbosa, ELSIE is PHCP. pm1 06:48 Otf Alvarez MD is Attending Physician. pm1 06:51 Triage completed. aa1 06:52 Arm band placed on right wrist. aa1 07:00 Report given to ALFREDITO Aden and ALFREDITO Curtis. cc3 07:05 Markie Arias, ALFREDITO is Primary Nurse. jl7 07:15 Patient has correct armband on for positive identification. Bed in low position. Call jl7 light in reach. Side rails up X 1. Pulse ox on. NIBP on. 07:21 Missed attempt(s): 22 gauge in right wrist. Bleeding controlled, band aid applied, pc1 catheter tip intact. 07:22 Missed attempt(s): 20 gauge in right antecubital area. Bleeding controlled, band aid pc1 applied, catheter tip intact. 07:24 US Abdomen Limited In Process Unspecified. EDMS 07:25 Initial lab(s) drawn, by me, sent to lab. Urine collected: clean catch specimen, jl7 cloudy. Inserted saline lock: 20 gauge in left antecubital area, using aseptic technique. Blood collected. 07:54 Lab(s) recollected, by me, sent to lab. jl7 08:53 No provider procedures requiring assistance completed. IV discontinued, intact, jl7 bleeding controlled, No redness/swelling at site. Pressure dressing applied. Administered Medications: 07:25 Drug: NS 0.9% 1000 ml Route: IV; Rate: 1000 ml; Site: left antecubital; jl7 08:54 Follow up: IV Status: Completed infusion jl7 07:26 Drug: Zofran 4 mg Route: IVP; Site: left antecubital; jl7 08:15 Follow up: Response: No adverse reaction; Nausea is decreased jl7 07:28 Drug: TORadol 30 mg Route: IVP; Site: left antecubital; jl7 08:15 Follow up: Response: No adverse reaction; Pain is decreased jl7 Outcome: 08:31 Discharge ordered by MD. pm1 08:53 Discharged to home ambulatory. jl7 08:53 Condition: stable 08:53 Discharge instructions given to patient, family, Instructed on discharge instructions, follow up and referral plans. medication usage, Demonstrated understanding of instructions, follow-up care, medications, Prescriptions given X 3. 08:54 Patient left the ED. jl7 Signatures: Dispatcher [employer] EDNH Staci Corrales RN RN [email or web address] Jacklyn Malin Patrick, ELSIE IN MOLD COATER pm1 Markie Arias RN RN jl7 Andie Allen cc3 Lex Collier pc1
--- NOTE | 2018-05-15 08:38 | RAD REPORT ---
EXAM DESCRIPTION: US - Abdomen Exam Limited - 05/15/2018 7:26 am CLINICAL HISTORY: Abdominal pain. COMPARISON: 2016 FINDINGS: Multiple gallstones. Gallbladder wall normal thickness The biliary tree is normal caliber. IMPRESSION: Cholelithiasis
[2018-05-15 09:17] VITALS: TEMP 98.5; O2SAT 100
[2018-05-15 09:18] VITALS: BP 106/68
== END 2018-05-15 08:54 | disposition home or self-care (01) ==
LOC: ER 06:32
DX: K80.20 Calculus of gallbladder without cholecystitis without obstruction (principal)
CPT/HCPCS: 36415; 76705; 80048; 80076; 81003; 81025; 83690; 85025; 96361; 96374; 96375; 99284; J2405; J7030

== ENCOUNTER 2018-07-15 06:11 | Day surgery (SDC) | payer OTHER ==
[2018-07-02 15:37] LABS: Absolute Lymphocytes (CBC) 2.8 K/uL (0.7-4.9); Absolute Monocytes 0.4 K/uL (0.1-1.3); Absolute Neutrophil 6.2 K/uL (1.8-8.0); Basophils % 0.4 % (0-1.3); Eosinophils % 2.2 % (0-4.4); Hematocrit 41.8 % (36.0-45.0); Lymphocytes % 29.4 % (15.3-44.8); MPV 10.8 fL (7.6-11.3); Monocytes % 3.8 % (3.3-12.3); RBC Red Blood Cell Count 4.73 M/uL (3.86-4.86)
[2018-07-02 15:48] LABS: BUN Blood Urea Nitrogen 13 mg/dL (7-18)
[2018-07-02 15:52] LABS: Potassium 4.5 mmol/L (3.5-5.1)
--- OUTSIDE RECORDS SUMMARY | 2018-07-15 06:19 | XMS REPORT ---
:1990 Author Organization eClinicalWorks Care Team Providers Name Role Phone Dontae Avina Provider Role Unavailable Allergies, Adverse Reactions, Alerts Substance Reaction Event Type N.K.D.A. 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 Problem Normal first in third Z34.03 Active trimester Problem Calculus of gallbladder without K80.20 Active cholecystitis without obstruction Assessment Biliary colic K80.50 Active Assessment Calculus of gallbladder without K80.20 Active cholecystitis without obstruction Problem Other abnormal findings on O28.8 Active screening of mother Medications Medication Code Code Instructions Start End Status Dosage System Date Date Flagyl [facility] 21693709719 500 MG Orally Dec 09, Active 1 tablet twice a day 2017 Levothyroxine [facility] 86852251369 25 MCG Orally Active 1 tablet Sodium Once a day on an empty stomach in the morning Results No Known Results Summary Purpose eClinicalWorks Submission
[2018-07-15 06:47] LABS: Specific Gravity >= 1.030 (1.005-1.030)
[2018-07-15] MEDS ORDERED: LIDOCAINE 2% MPF 5 ML VIAL ONE (07:10)
[2018-07-15] MEDS ORDERED: FENTANYL CITR 100 MCG/2 ML ONE (07:10)
[2018-07-15] MEDS ORDERED: ROCURONIUM 50 MG/5 ML VIAL IV ONE (07:10)
[2018-07-15] MEDS ORDERED: CEFOXITIN/SWI 1gm 1 GM/10 ML SYR ONE (07:10)
[2018-07-15] MEDS ORDERED: Ringers Lactate 1,000 ML IV ONE (07:10)
[2018-07-15] MEDS ORDERED: PROPOFOL 200 MG/20 ML VIAL IV ONE (07:10)
[2018-07-15] MEDS ORDERED: DEXAMETHASONE 10 MG/ML VIAL ONE (07:10)
[2018-07-15] MEDS ORDERED: MIDAZOLAM HCL 2 MG/2 ML INJ ONE (07:10)
[2018-07-15] MEDS ORDERED: BUPIVACA 0.25%/EPI 0.0005% MDV 50 ML VIAL ONE (07:26)
--- NOTE | 2018-07-15 09:02 | P.OP ---
Preoperative diagnosis: Symptomatic Cholelithiasis Postoperative diagnosis: Symptomatic Cholelithiasis Primary procedure: Laparoscopic Cholecystectomy Anesthesia: GETA + Local Estimated blood loss: <10cc Specimen: Gallbladder Findings: Short Cystic Duct, Short Cystic Artery, intrahepatic Gallbladderq Complications: None Transferred to: Recovery Room Condition: Good
[2018-07-15] MEDS ORDERED: KETOROLAC 30 MG/ML INJ ONE (09:07)
[2018-07-15] MEDS ORDERED: MORPHINE 10 MG/ML VIAL ONE (09:14)
[2018-07-15] MEDS: MORPHINE 4 MG/ML SYR ONE ×4 (09:35→09:51)
[2018-07-15] MEDS ORDERED: MORPHINE 4 MG/ML SYR ONE (10:12)
[2018-07-15] MEDS ORDERED: ONDANSETRON 4 MG/2 ML VIAL ONE (10:15)
[2018-07-15] MEDS ORDERED: HYDROCODONE/APAP 5/325 MG TAB ONE (11:15)
[2018-07-15 11:50] VITALS: BP 112/71; TEMP 98.6; O2SAT 98
--- NOTE | 2018-07-15 17:49 | OP ---
Date of Procedure: 07/15/2018 Surgeon: Dontae Avina MD, Preoperative Diagnosis: Symptomatic cholelithiasis. Postoperative Diagnosis: Symptomatic cholelithiasis. Procedure Performed: Laparoscopic cholecystectomy. Anesthesia: General endotracheal with local. Estimated Blood Loss: Less than 10 cc. Specimen: Gallbladder. Findings: Short cystic duct, short cystic artery, intrahepatic gallbladder. Complications: None. Disposition: Transferred to recovery room in good condition. Procedure In Detail: Transferred to recovery room in good condition. Procedure In Detail: After informed consent was obtained, the patient was brought to the operating r oom, prepped and draped in the usual sterile fashion. After adequate anesthesia was achieved, suprau mbilical area was anesthetized with 0.25% Marcaine, sharply incised and a 5-mm trocar was introduced in the abdomen without evidence of complication. Insufflation was obtained to 15 mmHg at this time. The area was inspected and there was no injury to vital structures upon entry the abdomen. Three ad ditional trocars were placed, 1 in the epigastrium, 2 in the right upper quadrant. This was similarl y anesthetized and sharply incised, and 5-mm trocars were placed under direct visualization without e vidence of complication. The patient was then positioned head up right-side up position. Ratcheted graspers used to bring the gallbladder. I grabbed the Phoenix pouch and the fundus of the gallbladd er. The fundus of the gallbladder placed toward the patient's right shoulder and dissection continue d down near the triangle of Calot. Dissection continued to expose two structures which were identifi ed as the cystic duct and cystic artery, which were found to be quite short. The gallbladder had a s omewhat intrahepatic course down near the triangle of Calot, making dissection somewhat more tedious. After the cystic duct and cystic artery were identified and a critical view of safety was obtained, titanium clips were placed doubly on the proximal side and singly on the distal side of both the str uctures and they were ligated using the Endo Froylan. The gallbladder was then removed from the hepat ic fossa without evidence of complication. There were some hemostatic maneuvers required on the gall bladder fossa with electrocautery, which controlled the bleeding of the hepatic fossa without evidenc e of complication and good hemostasis was achieved this time. The gallbladder was then placed in End oCatch bag, removed through the umbilical trocar. Reinsufflation was obtained at this time and the a phil was inspected. The clips were found to be in good anatomic position. The area was copiously irr igated multiple times until completely clear and suctioned out. There was minimal spillage of bile t hroughout the procedure and no bleeding at the end of the procedure as well. The abdomen was copious ly irrigated once again, suctioned completely clear until completely dry, placed in neutral position. The umbilical trocar was removed. The umbilical trocar site was closed using a Fahad-Trang sut ure passer with 0 Vicryl in interrupted fashion with good approximation tissues. The remaining troca rs were in place and the abdomen was completely desufflated and all removed under direct visualizatio n without evidence of complication. After the abdomen was completely desufflated, all skin incisions were then copiously irrigated and closed with a 4-0 Monocryl in a running fashion. Dermabond placed over top. The patient tolerated the procedure without evidence of complication, transferred to the PACU in good condition. All counts were correct at the end of the case. DIO/EVELIN Voice ID: [id number] Report ID: [id number]
== END 2018-07-15 11:38 | disposition home or self-care (01) ==
LOC: OR 06:11
PROVIDERS: ATTEND Surgery
PROC: 0FT44ZZ Resection of Gallbladder, Percutaneous Endoscopic Approach (ICD-10-PCS; principal; 2018-07-15 07:30)
DX: K80.10 Calculus of gallbladder with chronic cholecystitis without obstruction (principal); Z82.49 Family history of ischemic heart disease and other diseases of the circulatory system; Z83.3 Family history of diabetes mellitus; Z80.6 Family history of leukemia; Z80.7 Family history of other malignant neoplasms of lymphoid, hematopoietic and related tissues; Z82.5 Family history of asthma and other chronic lower respiratory diseases
CPT/HCPCS: 36415; 80051; 81025; 82565; 84520; 85025; 88304; J1100; J2250; J2405; J2704; J3010